=== PATIENT | female | born 2000 | race Caucasian/White ===

== ENCOUNTER → 2024-10-15 06:56 | Outpatient (REF) | payer OTHER, SELFPAY | LOC: RCS 06:56 | PROVIDERS: ATTENDING PHYSICIAN Internal Medicine Cardiovascular Disease; FAMILY PHYSICIAN Student in an Organized Health Care Education/Training Program | DX: R00.2 Palpitations (principal) | CPT/HCPCS: 93306 ==

== ENCOUNTER → 2024-12-01 15:48 | Outpatient (REF) | payer OTHER, SELFPAY | LOC: RAD 15:48 | PROVIDERS: ATTENDING PHYSICIAN Physician Assistant Medical | DX: R07.9 Chest pain, unspecified (principal) | CPT/HCPCS: 71260; Q9967 ==

== ENCOUNTER → 2025-06-18 14:28 | Outpatient (REF) | payer OTHER, SELFPAY | LOC: HWRAD 14:28 | PROVIDERS: ATTENDING PHYSICIAN Nurse Practitioner Adult Health; FAMILY PHYSICIAN Student in an Organized Health Care Education/Training Program | DX: N91.1 Secondary amenorrhea (principal) | CPT/HCPCS: 76830; 76856 ==